=== PATIENT | female | born 1975 | race African-American/Black ===

== ENCOUNTER 2016-12-02 00:52 | Emergency (ER) | payer MEDICAID ==
[~2016-12-02] VITALS: Ht 152.4 cm; Wt 45.0 kg
[~2016-12-02 00:52] MED LIST: QUET200T PO; QUET300T2 PO; SERT100T PO; SERT100T12 PO; TRAZ-147 PO
[2016-12-02] MEDS ORDERED: PERM60CR4 TP (01:04)
[2016-12-02] MEDS ORDERED: QUEtiapine FUMARATE 300 MG TABLET PO ONE (03:30)
[2016-12-02] MEDS ORDERED: TraZODone HCL 50 MG TABLET PO ONE (03:30)
[2016-12-02] MEDS ORDERED: QUEtiapine FUMARATE 200 MG TABLET PO ONE ×2 (03:30)
[2016-12-02] MEDS ORDERED: QUEtiapine FUMARATE 100 MG TABLET PO ONE (03:45)
[2016-12-02] MEDS ORDERED: BETAMETHASONE VAL 0.1% 15 GM CREAM TP ONE (03:45)
[2016-12-02 03:57] VITALS: BP 140/60
== END 2016-12-02 03:59 | disposition home or self-care (01) ==
LOC: EMS 00:53
DX: S20.469A Insect bite (nonvenomous) of unspecified back wall of thorax, initial encounter (principal); S40.861A Insect bite (nonvenomous) of right upper arm, initial encounter; S40.862A Insect bite (nonvenomous) of left upper arm, initial encounter; F25.9 Schizoaffective disorder, unspecified; F31.9 Bipolar disorder, unspecified; F17.210 Nicotine dependence, cigarettes, uncomplicated; F12.90 Cannabis use, unspecified, uncomplicated; W57.XXXA Bitten or stung by nonvenomous insect and other nonvenomous arthropods, initial encounter; Y93.89 Activity, other specified; Y92.89 Other specified places as the place of occurrence of the external cause; Y99.8 Other external cause status
CPT/HCPCS: 99284